=== PATIENT | female | born 1960 | race Caucasian/White ===

== ENCOUNTER 2017-04-26 07:04 | Day surgery (SDC) | payer BC ==
[~2017-04-26] VITALS: Ht 167.6 cm; Wt 115.0 kg
[~2017-04-26 07:04] MED LIST: CALAN SR,COVER240 MG PO; CALAN120 MG PO; CHOLESTYRAMINE L4 GM PO; Cipro PO; DEPO ESTRADIO5 MG/ML IM; DEPO-PROVE150 MG/1 M IM; DICLOFENAC SOD100 MG PO; FIORICET WI1 CAPSULE PO; FLOMAX0.4 MG PO; GLUCOPHAGE500 MG PO; Glucophage PO; IMITREX100 MG PO; IMITREX4 MG/0.5 M IM; KEFLEX500 MG PO; LORTAB 5-325 M1 EACH PO; LYRICA100 MG; LYRICA100 MG PO; LYRICA75 MG PO; NEXIUM20 MG PO; NEXIUM40 MG PO; OMEPRAZOLE40 M1 PO; PAMELOR50 MG PO; PERCOCET 5/31 TABLET PO; PRILOSEC40 MG PO; PYRIDIUM200 MG PO; Pravachol PO; QUESTRAN PACKET4 GM PO; RESTASIS 01 DROP/0.4 BOTH EYES; Restasis 0.05%; SUCRALFATE1 GM PO; VOLTAREN-XR100 MG PO; ZOFRAN4 MG PO; ZOLOFT50 MG PO; ZOMIG5 M1 NS; flagyl
[2017-04-26 07:58] VITALS: BP 157/95
[2017-04-26] MEDS ORDERED: NORCO 5/3251 TABLET PO (11:09)
[2017-04-26 12:16] VITALS: BP 124/78
[2017-04-26 13:20] VITALS: BP 108/54
[2017-04-26 13:42] VITALS: BP 94/55
== END 2017-04-26 13:35 | disposition home or self-care (01) ==
LOC: SDC 07:04
PROC: 0WUF4JZ Supplement Abdominal Wall with Synthetic Substitute, Percutaneous Endoscopic Approach (ICD-10-PCS; principal; 2017-04-26)
DX: K43.0 Incisional hernia with obstruction, without gangrene (principal); E11.9 Type 2 diabetes mellitus without complications; E78.5 Hyperlipidemia, unspecified; K52.9 Noninfective gastroenteritis and colitis, unspecified; G43.909 Migraine, unspecified, not intractable, without status migrainosus; K21.9 Gastro-esophageal reflux disease without esophagitis; E66.9 Obesity, unspecified; Z68.39 Body mass index [BMI] 39.0-39.9, adult; H04.123 Dry eye syndrome of bilateral lacrimal glands; Z82.49 Family history of ischemic heart disease and other diseases of the circulatory system; Z83.3 Family history of diabetes mellitus
CPT/HCPCS: C1781; J0330; J1170; J1885; J2250; J2405; J2710; J3010; S0020

== ENCOUNTER 2018-03-05 19:34 | Emergency (ER) | payer BC ==
[~2018-03-05] VITALS: Ht 172.7 cm; Wt 106.3 kg
[~2018-03-05 19:34] MED LIST changes: +NORCO 5/3251 TABLET PO
[2018-03-05 20:12] LABS: HEMATOCRIT 46.2 % (36.0-46.0); HEMOGLOBIN 15.4 G/DL (11.9-15.5); MCH 31.5 PG (29.0-34.0); MCHC 33.3 G/DL (30.0-36.0); MCV 94.5 FL (83-99); PLATELET COUNT 223 K/uL (156-360); RBC DIS.WIDTH-CV 12.8 % (11.8-14.6); RBC DIS.WIDTH-SD 44.7 % (39-53); RED BLOOD COUNT 4.89 M/uL (3.80-5.20); WHITE BLOOD COUNT 9.8 K/uL (4.1-10.2)
[2018-03-05 20:22] LABS: CHLORIDE 107 mEq/L (99-109); POTASSIUM 3.8 mEq/L (3.7-5.4); SODIUM 142 mEq/L (136-147)
[2018-03-05 20:24] LABS: GLUCOSE 95 mg/dL (70-99)
[2018-03-05 20:28] LABS: CREATININE 0.9 mg/dL (0.6-1.3); GFR ESTIMATE (CALCULATED) > 59 mL/min/
[2018-03-05 20:29] LABS: UREA NITROGEN (BUN) 14 mg/dL (9-23)
[2018-03-05 20:32] LABS: TROP-I INTERPRETATION NEGATIVE; TROPONIN-I < 0.01 ng/mL (0.0-0.30)
[2018-03-05] MEDS ORDERED: FLEXERIL10 MG PO (21:42)
[2018-03-05 21:46] VITALS: BP 151/92
== END 2018-03-05 21:47 | disposition home or self-care (01) ==
LOC: EME 19:34
DX: S16.1XXA Strain of muscle, fascia and tendon at neck level, initial encounter (principal); R07.89 Other chest pain; M54.12 Radiculopathy, cervical region; E11.9 Type 2 diabetes mellitus without complications; J45.909 Unspecified asthma, uncomplicated; G43.909 Migraine, unspecified, not intractable, without status migrainosus; Z90.49 Acquired absence of other specified parts of digestive tract; Z87.442 Personal history of urinary calculi; Z88.5 Allergy status to narcotic agent; Z88.0 Allergy status to penicillin
CPT/HCPCS: 71046; 80048; 84484; 85027; 93005; 99281; 99284